=== PATIENT | male | born 1975 | race Caucasian/White ===

== ENCOUNTER 2017-08-04 11:27 | Emergency (ER) | payer BC ==
[~2017-08-04] VITALS: Ht 182.9 cm; Wt 133.8 kg
[2017-08-04] MEDS ORDERED: IV NORMAL SALINE 1000ML BAG 1,000 ML IV SCH (11:58)
[2017-08-04] MEDS ORDERED: 0.9 % SODIUM CHLORIDE 10 ML DISP.SYRIN. IV PRN (12:00)
[2017-08-04] MEDS ORDERED: ONDANSETRON PF 4 MG/2 ML VIAL. IV ONE (12:00)
[2017-08-04] MEDS ORDERED: HYDROmorphone 2 MG/ML VIAL IV ONE (12:00)
[2017-08-04] MEDS ORDERED: KETOROLAC 30 MG/ML INJ. IV ONE (12:00)
[2017-08-04] MEDS ORDERED: HYDROmorphone 2 MG/ML VIAL IV/SQ PRN (12:00)
[2017-08-04 12:07] LABS: BASO # 0.1 x10^3/uL (0.0-0.2); BASO % 0 % (0-3); EOS % 0 % (0-3); HEMATOCRIT 42.4 % (39.0-53.0); HEMOGLOBIN 14.7 g/dL (13.0-17.5); LYMPH # 1.8 x10^3/uL (1.0-4.8); LYMPH % 12 % (24-48); MEAN CORPUSCULAR HEMOGLOBIN 30 pg (25-35); MEAN CORPUSCULAR HGB CONC 35 g/dL (31-37); MEAN CORPUSCULAR VOLUME 86 fL (79-100); MONO % 8 % (0-9); NEUT % 79 % (31-73); PLATELET COUNT 288 x10^3/uL (140-400); RED BLOOD COUNT 4.91 x10^6/uL (4.30-5.70); RED CELL DISTRIBUTION WIDTH 13.1 % (11.5-14.5); WHITE BLOOD COUNT 14.7 x10^3/uL (4.0-11.0)
[2017-08-04 12:09] LABS: BILIRUBIN,URINE NEGATIVE (NEG); GLUCOSE,URINE NEGATIVE (NEG); NITRITE,URINE NEGATIVE (NEG); PH,URINE 7.5; PROTEIN,URINE NEGATIVE (NEG-TRACE); UROBILINOGEN,URINE 0.2 mg/dL (0.2 mg/dL)
--- NOTE | 2017-08-04 12:11 | PHYS DOC ---
Past Medical History Past Medical History: No Pertinent History, Other Additional Past Medical Histor: insomnia Past Surgical History: No Surgical History Alcohol Use: Occasionally Drug Use: None Adult General Chief Complaint Chief Complaint: ABDOMINAL PAIN HPI HPI Patient is a pleasant 42-year-old male with no major medical problems no prior surgeries who presents with left lower quadrant abdominal pain that began relatively abruptly this morning while we discolored. It's been going on for about 4 hours described as a dull ache almost a CPK pulled muscles abdominal wall now Jesse sharp and stabbing. It has not moved to the groin but has moved into the lower abdomen all the above symptoms his pubis. Described as sharp and stabbing 88 of 10 at this time. Patient's is nothing really makes it worse or better. He can't Get a comfortable position. He denies any UTI symptoms or hematuria. He denies any back pain, nausea or vomiting at this time. He denies any diarrhea or trauma. Patient denies any prior history of the same. Review of Systems Review of Systems Constitutional: Denies fever or chills [] Eyes: Denies change in visual acuity, redness, or eye pain [] HENT: Denies nasal congestion or sore throat [] Respiratory: Denies cough or shortness of breath [] Cardiovascular: No additional information not addressed in HPI [] GI: Patient does describe some abdominal pain in the left lower quadrant with some mild nausea without vomiting or diarrhea that is now improved. : Denies dysuria or hematuria [] Musculoskeletal: Denies back pain or joint pain [] Integument: Denies rash or skin lesions [] Neurologic: Denies headache, focal weakness or sensory changes [] Endocrine: Denies polyuria or polydipsia [] Current Medications Current Medications Current Medications Medications (Trade) Dose Ordered Sig/Martha Start Time Stop Time Status Last Admin Dose Admin Hydromorphone HCl (Dilaudid) 1 mg 1X ONCE 08/04/17 12:00 08/04/17 12:01 DC Ketorolac Tromethamine (Toradol) 30 mg 1X ONCE 08/04/17 12:00 08/04/17 12:03 DC 08/04/17 12:25 30 MG Ondansetron HCl (Zofran) 4 mg 1X ONCE 08/04/17 12:00 08/04/17 12:01 DC 08/04/17 12:24 4 MG Sodium Chloride (Normal Saline Flush) 10 ml QSHIFT PRN 08/04/17 12:00 08/04/17 12:25 10 ML Allergies Allergies Allergies Coded Allergies Type Severity Reaction Last Updated Verified No Known Drug Allergies 08/04/17 No Physical Exam Physical Exam Vital signs recorded on the chart demonstrate hypertension, Constitutional: Well developed, well nourished, patient uncomfortable mildly obese nontoxic in appearance mildly diaphoretic. [] HENT: Normocephalic, atraumatic, bilateral external ears normal, oropharynx moist, no oral exudates, nose normal. [] Eyes: PERRLA, EOMI, conjunctiva normal, no discharge. [] Neck: Normal range of motion, no tenderness, supple, no stridor. [] Cardiovascular:Heart rate regular rhythm, no murmur [] Lungs & Thorax: Bilateral breath sounds clear to auscultation [] Abdomen: Bowel sounds normal, soft, mild tenderness to palpation left lower quadrant. No masses no pulsatile masses no guarding rebound : Patient has normal joint male genitalia circumcised testicular tenderness. Positive cremasterics reflex. No evidence of hernia. Skin: Warm, dry, no erythema, no rash. [] Back: No tenderness, no CVA tenderness. [] Extremities: No tenderness, no cyanosis, no clubbing, ROM intact, no edema. [] Neurologic: Alert and oriented X 3, normal motor function, normal sensory function, no focal deficits noted. [] Psychologic: Affect normal, judgement normal, mood normal. [] Current Patient Data Vital Signs Vital Signs Date Time Temp Pulse Resp B/P (MAP) Pulse Ox O2 Delivery O2 Flow Rate FiO2 08/04/17 11:50 97.6 88 20 146/92 (110) 96 Room Air 97.6 Lab Values Laboratory Tests Test 08/04/17 11:40 08/04/17 11:42 White Blood Count 14.7 x10^3/uL (4.0-11.0) H Red Blood Count 4.91 x10^6/uL (4.30-5.70) Hemoglobin 14.7 g/dL (13.0-17.5) Hematocrit 42.4 % (39.0-53.0) Mean Corpuscular Volume 86 fL (79-100) Mean Corpuscular Hemoglobin 30 pg (25-35) Mean Corpuscular Hemoglobin Concent 35 g/dL (31-37) Red Cell Distribution Width 13.1 % (11.5-14.5) Platelet Count 288 x10^3/uL (140-400) Neutrophils (%) (Auto) 79 % (31-73) H Lymphocytes (%) (Auto) 12 % (24-48) L Monocytes (%) (Auto) 8 % (0-9) Eosinophils (%) (Auto) 0 % (0-3) Basophils (%) (Auto) 0 % (0-3) Neutrophils # (Auto) 11.6 x10^3uL (1.8-7.7) H Lymphocytes # (Auto) 1.8 x10^3/uL (1.0-4.8) Monocytes # (Auto) 1.2 x10^3/uL (0.0-1.1) H Eosinophils # (Auto) 0.0 x10^3/uL (0.0-0.7) Basophils # (Auto) 0.1 x10^3/uL (0.0-0.2) Sodium Level 137 mmol/L (136-145) Potassium Level 4.0 mmol/L (3.5-5.1) Chloride Level 99 mmol/L (98-107) Carbon Dioxide Level 31 mmol/L (21-32) Anion Gap 7 (6-14) Blood Urea Nitrogen 18 mg/dL (8-26) Creatinine 1.0 mg/dL (0.7-1.3) Estimated GFR (Cockcroft-Gault) 81.6 BUN/Creatinine Ratio 18 (6-20) Glucose Level 110 mg/dL (70-99) H Calcium Level 9.6 mg/dL (8.5-10.1) Total Bilirubin 0.5 mg/dL (0.2-1.0) Aspartate Amino Transferase (AST) 17 U/L (15-37) Alanine Aminotransferase (ALT) 37 U/L (16-63) Alkaline Phosphatase 68 U/L (46-116) Total Protein 7.8 g/dL (6.4-8.2) Albumin 4.3 g/dL (3.4-5.0) Albumin/Globulin Ratio 1.2 (1.0-1.7) Lipase 128 U/L (73-393) Urine Collection Type Void Urine Color Yellow Urine Clarity Clear Urine pH 7.5 Urine Specific [place] 1.020 Urine Protein Negative mg/dL (NEG-TRACE) Urine Glucose (UA) Negative mg/dL (NEG) Urine Ketones (Stick) Negative mg/dL (NEG) Urine Blood Negative (NEG) Urine Nitrite Negative (NEG) Urine Bilirubin Negative (NEG) Urine Urobilinogen Dipstick 0.2 mg/dL (0.2 mg/dL) Urine Leukocyte Esterase Negative (NEG) Urine RBC 0 /HPF (0-2) Urine WBC 0 /HPF (0-4) Urine Bacteria 0 /HPF (0-FEW) Laboratory Tests 08/04/17 11:40 Laboratory Tests 08/04/17 11:40 EKG EKG [] Radiology/Procedures Radiology/Procedures [] Course & Med Decision Making Course & Med Decision Making Pertinent Labs and Imaging studies reviewed. (See chart for details) Patient presents with abdominal pain sharp and stabbing very reminiscent of a possible kidney stone. Patient will also be evaluated for small bowel resection , UTI, pyonephritis, diverticulitis, diverticulosis, dissection, intussusception. Patient tells me that their symptoms given during CC are improved. 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 Time is now 12 :55 PM patient laboratory work is returned demonstrating elevated leukocytosis with a white blood cell count of 14.7K Patient tells me that their symptoms given during CC are improved. I reviewed his lab work and radiology reports with patient at the bedside patient has diverticulitis of the sigmoid colon with a phlebolith and no obvious evidence of appendicitis at this time. 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 At this point patient be given a dose of oral ciprofloxacin and Flagyl here in the emergency department which he tolerated well. Patiently asked to follow-up with his primary care doctor for continued evaluation and return here for increasing abdominal pain or questions or concerns. Dragon Disclaimer Dragon Disclaimer This electronic medical record was generated, in whole or in part, using a voice recognition dictation system. Departure Departure Impression: Primary Impression: Diverticulitis Additional Impression: Abdominal pain Disposition: 01 HOME, SELF-CARE Condition: IMPROVED Referrals: UNKNOWN PCP NAME (PCP) Patient Instructions: Abdominal Pain, Diverticulitis Additional Instructions: My discharge plan Follow up: In addition patient is asked to followup with their primary doctor, within a week for followup examination and to address patient's ongoing medical conditions. Because patient does not have a regular medical doctor, a local physician Resource Sheet will be provided to establish care primary care. Patient is advised that in the Emergency Department primary complaints are addressed and only in light of known signs and symptoms. Patient should return immediately to the emergency department if new signs and symptoms develop or patient's condition worsens in any way. At time of discharge patient was in stable condition and had verbalized understanding of the discharge instructions. Scripts Metronidazole (FLAGYL) 500 Mg Tablet 500 MG PO TID for 10 Days, #30 TAB Prov: BANDAR LOPEZ MD 08/04/17 Ondansetron (ZOFRAN ODT) 4 Mg Tab.rapdis 4 MG PO BID Y for NAUSEA/VOMITING for 5 Days, #10 TAB Prov: BANDAR LOPEZ MD 08/04/17 Naproxen (NAPROSYN) 500 Mg Tablet 1 TAB PO BID, #14 TAB 1 Refill Prov: BANDAR LOPEZ MD 08/04/17 Ciprofloxacin Hcl (CIPRO) 500 Mg Tablet 1 TAB PO BID, #20 TAB Prov: BANDAR LOPEZ MD 08/04/17 Problem Qualifiers BANDAR LOPEZ MD Aug 04, 2017 12:11
[2017-08-04 12:13] LABS: BACTERIA,URINE 0 /HPF (0-FEW); RBC,URINE 0 /HPF (0-2); WBC,URINE 0 /HPF (0-4)
[2017-08-04 12:13] LABS: CALCIUM 9.6 mg/dL (8.5-10.1); GFR 81.6
[2017-08-04 12:18] LABS: ALBUMIN 4.3 g/dL (3.4-5.0); ALBUMIN/GLOBULIN RATIO 1.2 (1.0-1.7); TOTAL BILIRUBIN 0.5 mg/dL (0.2-1.0); TOTAL PROTEIN 7.8 g/dL (6.4-8.2)
--- NOTE | 2017-08-04 13:07 | RAD ---
Examination: CT of the abdomen pelvis without contrast History: History of left lower quadrant abdominal pain Comparison: None available Technique: Axial CT images of the abdomen pelvis were performed without contrast. Coronal and sagittal reformats are performed PQRS Compliance Statement: One or more of the following individualized dose reduction techniques were utilized for this examination: 1. Automated exposure control 2. Adjustment of the mA and/or kV according to patient size 3. Use of iterative reconstruction technique. Findings: Minimal bibasal lung atelectasis is identified. The evaluation of the solid organs is limited due to lack of IV contrast. The evaluation of the bowel is limited due to lack of oral contrast. The visualized noncontrasted spleen, adrenals grossly appears unremarkable. The gallbladder is mildly distended. Probable mild hepatic steatosis. The stomach is mildly distended. The visualized pancreas grossly appears unremarkable Feces and gas noted in the colon. The appendix demonstrates hyperdensity within likely appendicolith. The appendix is mildly prominent measuring 7 mm. The examination however no evidence of intermittent fracture identified on the appendix Scattered multiple colonic diverticula identified. There is moderate intermittent fat stranding identified around the sigmoid colon with moderate thickening of the focal thickening of the sigmoid colon wall. The inflammation around the sigmoid colon surrounds the scattered diverticula Urinary bladder is mildly distended No evidence of interlobular collecting system calculi or hydronephrosis No evidence of lytic bony destructive lesion. Mild degenerative changes visualized thoracal lumbar spine. Impression: 1. Moderate inflammatory fat stranding identified around the sigmoid colon with focal thickening of the sigmoid colon wall. Differential includes acute diverticulitis or focal colitis. Underlying neoplasm is not completely excluded. No focal fluid collection to suggest an abscess. 2. Mild prominent appearing appendix with the hyperdensity within the appendix probably appendicoliths, however no evidence of inflammatory fat stranding identified about the appendix. 3. Probable mild hepatic steatosis.
[2017-08-04] MEDS ORDERED: metroNIDAZOLE 500 MG TABLET PO ONE (13:45)
[2017-08-04] MEDS ORDERED: CIPROFLOXACIN HCL 250 MG TABLET. PO ONE (13:45)
[2017-08-04] MEDS ORDERED: ONDA4TAB10 PO (13:50)
[2017-08-04] MEDS ORDERED: CIPR500T94 PO (13:50)
[2017-08-04] MEDS ORDERED: NAPR500T PO (13:50)
[2017-08-04] MEDS ORDERED: METR500T PO (13:50)
[2017-08-04 13:58] VITALS: BP 132/70
== END 2017-08-04 14:05 | disposition home or self-care (01) ==
LOC: ER 11:27
DX: K57.92 Diverticulitis of intestine, part unspecified, without perforation or abscess without bleeding (principal); E66.9 Obesity, unspecified; G47.00 Insomnia, unspecified; Z68.41 Body mass index [BMI] 40.0-44.9, adult
CPT/HCPCS: 36415; 74176; 80053; 81001; 83690; 85025; 96361; 96374; 96375; 99285; J1885; J2405; J7030